=== PATIENT | female | born 1995 | race Hispanic/Latino ===

== ENCOUNTER 2024-07-17 19:48 | Inpatient (IN) | payer OTHER, BC ==
[~2024-07-17] VITALS: Ht 157.5 cm; Wt 70.6 kg
[2024-07-17 20:16] LABS: ADD UA MICROSCOPIC YES; APPEARANCE,URINE CLOUDY (CLEAR); BILIRUBIN,URINE NEGATIVE (NEGATIVE); COLOR,URINE YELLOW (YELLOW); GLUCOSE, URINE (UA) NEGATIVE (NEGATIVE); KETONES,URINE 60 mg/dL (NEGATIVE); LEUKOCYTE ESTERASE ,URINE 250 Leu/uL (NEGATIVE); NITRATE,URINE NEGATIVE (NEGATIVE); OCCULT BLOOD,URINE LARGE (NEGATIVE); PROTEIN,URINE 30 mg/dL (NEGATIVE); UROBILINOGEN,URINE 0.2 mg/dL (0.2-1.0)
[2024-07-17 20:19] LABS: HCG,QUALITATIVE URINE NEGATIVE (NEGATIVE)
[2024-07-17 20:21] LABS: BACTERIA,URINE RARE /HPF (None Seen); CALCIUM OXALATE CRYSTALS,UR FEW /LPF (None Seen); MUCUS,URINE RARE LPF (None Seen); OTHER CASTS, URINE 2 /LPF (None Seen); RBC,URINE 26-50 /HPF (0-1); SQUAMOUS EPITHELIAL CELL,UR MOD /HPF (0-2); YEAST,URINE BUDDING FEW /HPF (None Seen)
[2024-07-17 20:31] LABS: BASOPHILS # (AUTO) 0.03 K/uL (0.00-0.20); BASOPHILS % (AUTO) 0.2 % (0.0-5.0); EOSINOPHILS # (AUTO) 0.14 K/uL (0.00-0.70); EOSINOPHILS % (AUTO) 0.7 % (0.0-8.0); HEMATOCRIT 38.3 % (36-48); IMMATURE GRANULOCYTE ABSOLUTE 0.09 K/uL (0-1); LYMPHOCYTES # (AUTO) 1.1 K/uL (1.0-4.8); LYMPHOCYTES % (AUTO) 5.7 % (21.0-51.0); MEAN CORPUSCULAR HEMOGLOBIN 30.4 pg (27.0-33.0); MEAN CORPUSCULAR HGB CONC 34.2 g/dL (32.0-36.0); MEAN CORPUSCULAR VOLUME 88.9 fL (79-99); MONOCYTES % (AUTO) 5.3 % (3.0-13.0); NEUTROPHILS # (AUTO) 16.6 K/uL (1.8-7.7); NEUTROPHILS % (AUTO) 87.6 % (40.0-77.0); PLATELET COUNT (AUTO) 289 K/uL (130-400); RED BLOOD CELL COUNT(AUTO) 4.31 MIL/uL (4.00-5.50); RED CELL DISTRIBUTION WIDTH 12.2 % (11.0-15.5); WHITE BLOOD COUNT (AUTO) 18.9 K/uL (4.8-10.8)
[2024-07-17 20:45] LABS: CREATININE 1.1 mg/dL (0.5-1.0); POTASSIUM 3.4 mmol/L (3.5-5.1)
[2024-07-17] MEDS: ketOROlac 15MG/ML VIAL (15MG/ML) IV ONE (21:07)
[2024-07-17] MEDS: cefTRIAXone 1G VIAL IVPB ONE (21:07)
[2024-07-17] MEDS: 0.9%NACL 1000ML 1,000 ML IV ONE (21:07)
[2024-07-17] MEDS ORDERED: IOHEXOL-350 75 ML VIAL IV ONE (21:21)
[2024-07-17] MEDS: MAGNESIUM CITRATE 296 ML SOLUTION PO ONE (22:10)
[2024-07-17] MEDS: LACTULOSE 20 GM/30 ML UDCUP PO ONE (22:10)
[2024-07-17] MEDS ORDERED: ondanSETRON 4MG INJ IV PRN (23:30)
[2024-07-17] MEDS ORDERED: LACTULOSE 20 GM/30 ML UDCUP PO PRN (23:30)
[2024-07-18] VITALS (8 sets, daily range): BP systolic 109–127; BP diastolic 53–78; PULSE 83–96; RESP 16–18; TEMP 98–99.1; O2SAT 98
[2024-07-18] MEDS: 0.9%NACL 1000ML 1,000 ML IV SCH (00:14)
[2024-07-18 05:53] LABS: BASOPHILS # (AUTO) 0.02 K/uL (0.00-0.20); BASOPHILS % (AUTO) 0.2 % (0.0-5.0); EOSINOPHILS # (AUTO) 0.02 K/uL (0.00-0.70); EOSINOPHILS % (AUTO) 0.2 % (0.0-8.0); HEMATOCRIT 34.7 % (36-48); IMMATURE GRANULOCYTE ABSOLUTE 0.04 K/uL (0-1); LYMPHOCYTES # (AUTO) 2.7 K/uL (1.0-4.8); LYMPHOCYTES % (AUTO) 20.4 % (21.0-51.0); MEAN CORPUSCULAR HEMOGLOBIN 29.8 pg (27.0-33.0); MEAN CORPUSCULAR HGB CONC 33.1 g/dL (32.0-36.0); MEAN CORPUSCULAR VOLUME 89.9 fL (79-99); MONOCYTES # (AUTO) 1.3 K/uL (0.1-1.0); MONOCYTES % (AUTO) 10.3 % (3.0-13.0); NEUTROPHILS # (AUTO) 8.9 K/uL (1.8-7.7); NEUTROPHILS % (AUTO) 68.6 % (40.0-77.0); PLATELET COUNT (AUTO) 249 K/uL (130-400); RED BLOOD CELL COUNT(AUTO) 3.86 MIL/uL (4.00-5.50); RED CELL DISTRIBUTION WIDTH 12.7 % (11.0-15.5)
[2024-07-18 06:12] LABS: ALBUMIN 2.7 g/dL (3.5-5.0); BILIRUBIN,TOTAL 0.7 mg/dL (0.2-1.0); CREATININE 1.1 mg/dL (0.5-1.0); MAGNESIUM 2.4 mg/dL (1.80-2.40); POTASSIUM 3.1 mmol/L (3.5-5.1); TOTAL PROTEIN, SERUM 6.5 g/dL (6.0-8.3)
[2024-07-18 06:16] LABS: PROTHROMBIN TIME 10.8 SEC (9.6-11.6)
[2024-07-18 06:18] LABS: PARTIAL THROMBOPLASTIN TIME 27.1 SEC (26.3-35.5)
[2024-07-18] MEDS ORDERED: SERT-439 PO (06:52)
[2024-07-18] MEDS ORDERED: ETHI1TAB18 PO (06:52)
[2024-07-18] MEDS ORDERED: PANT40TA54 PO (06:52)
[2024-07-18] MEDS: FAMOTIDINE 20MG VIAL IV SCH (08:48)
[2024-07-18] MEDS: cefTRIAXone 1G VIAL IVPB SCH (08:48)
[2024-07-18] MEDS ORDERED: cefTRIAXone 1G VIAL 1 GM in 0.9%NACL 50ML 50 ML IV SCH (09:00)
[2024-07-18] MEDS ORDERED: PoTASSium chloRIDE 20MEQ ER 20 MEQ ERTAB PO ONE (09:30)
[2024-07-18] MEDS: PoTASSium chloRIDE 20MEQ ER 20 MEQ ERTAB PO ONE (10:21)
[2024-07-18 10:38] LABS: APPEARANCE,URINE CLOUDY (CLEAR); BILIRUBIN,URINE NEGATIVE (NEGATIVE); COLOR,URINE YELLOW (YELLOW); GLUCOSE, URINE (UA) NEGATIVE (NEGATIVE); KETONES,URINE 40 mg/dL (NEGATIVE); LEUKOCYTE ESTERASE ,URINE NEGATIVE Leu/uL (NEGATIVE); NITRATE,URINE NEGATIVE (NEGATIVE); OCCULT BLOOD,URINE SMALL (NEGATIVE); PROTEIN,URINE 30 mg/dL (NEGATIVE); UROBILINOGEN,URINE 0.2 mg/dL (0.2-1.0)
[2024-07-18 10:50] LABS: MUCUS,URINE RARE LPF (None Seen); SQUAMOUS EPITHELIAL CELL,UR MANY /HPF (0-2)
[2024-07-18] MEDS: ketOROlac 15MG/ML VIAL (15MG/ML) IV PRN (11:09)
[2024-07-18] MEDS ORDERED: SERTraline HCL 50 MG TABLET PO SCH (13:30)
[2024-07-18] MEDS: acetaMINOPHEN 500 MG TABLET PO PRN (13:57)
[2024-07-18] MEDS: SERTraline HCL 50 MG TABLET PO SCH (14:06)
[2024-07-18] MEDS: tamSULOsin HCL 0.4 MG CAP.ER.24H PO ONE (21:21)
[2024-07-19] VITALS (9 sets, daily range): BP systolic 112–141; BP diastolic 67–89; PULSE 71–93; RESP 16–19; TEMP 97.9–99.2; O2SAT 97
[2024-07-19 04:57] LABS: BASOPHILS # (AUTO) 0.03 K/uL (0.00-0.20); BASOPHILS % (AUTO) 0.2 % (0.0-5.0); EOSINOPHILS # (AUTO) 0.04 K/uL (0.00-0.70); EOSINOPHILS % (AUTO) 0.3 % (0.0-8.0); HEMATOCRIT 32.3 % (36-48); IMMATURE GRANULOCYTE ABSOLUTE 0.06 K/uL (0-1); LYMPHOCYTES # (AUTO) 2.5 K/uL (1.0-4.8); MEAN CORPUSCULAR HEMOGLOBIN 30.9 pg (27.0-33.0); MEAN CORPUSCULAR HGB CONC 33.4 g/dL (32.0-36.0); MEAN CORPUSCULAR VOLUME 92.6 fL (79-99); MONOCYTES # (AUTO) 1.2 K/uL (0.1-1.0); MONOCYTES % (AUTO) 8.6 % (3.0-13.0); NEUTROPHILS % (AUTO) 72.5 % (40.0-77.0); PLATELET COUNT (AUTO) 208 K/uL (130-400); RED BLOOD CELL COUNT(AUTO) 3.49 MIL/uL (4.00-5.50); RED CELL DISTRIBUTION WIDTH 12.8 % (11.0-15.5); WHITE BLOOD COUNT (AUTO) 13.8 K/uL (4.8-10.8)
[2024-07-19 05:12] LABS: CREATININE 1.1 mg/dL (0.5-1.0); INR 0.95 (0.85-1.15); POTASSIUM 3.3 mmol/L (3.5-5.1); PROTHROMBIN TIME 10.3 SEC (9.6-11.6)
[2024-07-19 05:13] LABS: PARTIAL THROMBOPLASTIN TIME 28.2 SEC (26.3-35.5)
[2024-07-19] MEDS ORDERED: IOHEXOL-350 50ML VIAL IV ONE (08:59)
[2024-07-19] MEDS: Ethinyl Estradiol/Drospirenone (Loryna 3 mg-0.02 mg Tablet) PO SCH (09:00)
[2024-07-19] MEDS: PANTOPrazole 40 MG TAB DR PO SCH (10:28)
[2024-07-19] MEDS: tamSULOsin HCL 0.4 MG CAP.ER.24H PO SCH (10:28)
[2024-07-19] MEDS ORDERED: PoTASSium chloRIDE 20MEQ/100ML 100 ML IV PRN (11:00)
[2024-07-19] MEDS: PoTASSium chloRIDE 20MEQ ER 20 MEQ ERTAB PO PRN (11:57)
[2024-07-19] MEDS: morPHINE 2 MG SYG IVP PRN (17:49)
[2024-07-20 04:00] VITALS: BP 122/81; PULSE 91; RESP 17; TEMP 98.4
[2024-07-20 06:09] LABS: BASOPHILS # (AUTO) 0.03 K/uL (0.00-0.20); BASOPHILS % (AUTO) 0.3 % (0.0-5.0); EOSINOPHILS % (AUTO) 0.9 % (0.0-8.0); HEMATOCRIT 32.2 % (36-48); IMMATURE GRANULOCYTE ABSOLUTE 0.05 K/uL (0-1); LYMPHOCYTES # (AUTO) 1.6 K/uL (1.0-4.8); LYMPHOCYTES % (AUTO) 13.8 % (21.0-51.0); MEAN CORPUSCULAR HEMOGLOBIN 29.9 pg (27.0-33.0); MEAN CORPUSCULAR HGB CONC 32.9 g/dL (32.0-36.0); MEAN CORPUSCULAR VOLUME 90.7 fL (79-99); MONOCYTES # (AUTO) 0.9 K/uL (0.1-1.0); MONOCYTES % (AUTO) 7.7 % (3.0-13.0); NEUTROPHILS # (AUTO) 8.9 K/uL (1.8-7.7); NEUTROPHILS % (AUTO) 76.9 % (40.0-77.0); PLATELET COUNT (AUTO) 216 K/uL (130-400); RED BLOOD CELL COUNT(AUTO) 3.55 MIL/uL (4.00-5.50); RED CELL DISTRIBUTION WIDTH 12.6 % (11.0-15.5); WHITE BLOOD COUNT (AUTO) 11.6 K/uL (4.8-10.8)
[2024-07-20 06:41] LABS: CREATININE 0.9 mg/dL (0.5-1.0)
[2024-07-20 08:00] VITALS: BP 114/72; PULSE 91; RESP 16; TEMP 98.8
[2024-07-20 08:45] VITALS: O2SAT 96
[2024-07-20 12:48] VITALS: BP 116/78; PULSE 88; RESP 16; TEMP 98.3
[2024-07-20] MEDS ORDERED: CEPH500B PO (13:33)
[2024-07-20] MEDS ORDERED: IBUP-2077 PO (13:33)
[2024-07-20] MEDS ORDERED: TAMS-1 PO (13:33)
== END 2024-07-20 15:11 | disposition home or self-care (01) | DRG 690 ==
LOC: EDH 19:48 → EDHIP 23:27 → 3BH 07-18 00:20
PROVIDERS: ADMIT Internal Medicine; ATTEND Internal Medicine
DX: N13.6 Pyonephrosis (principal); E87.6 Hypokalemia; K59.00 Constipation, unspecified; K21.9 Gastro-esophageal reflux disease without esophagitis; F41.9 Anxiety disorder, unspecified
CPT/HCPCS: 36415; 74177; 74400; 76770; 80048; 80053; 81001; 81025; 82948; 83735; 84145; 85025; 85610; 85730; 87086; 96365; 96375; G0378; J0696; J1885; J2270; J3490; J7030; Q9967